=== PATIENT | male | born 1995 | race Caucasian/White ===

== ENCOUNTER 2017-01-08 01:29 | Emergency (ER) | payer SELFPAY ==
--- NOTE | 2017-01-08 02:31 | ER Document Report ---
ED Psych Disorder / Suicide - General Chief Complaint: Suicidal Ideation Stated Complaint: PSYCH EVAL Time Seen by Provider: 01/08/17 02:28 Notes: Patient is a 21-year-old male, past medical history PTSD, anxiety, depression, presents by mobile crisis after he unsuccessfully attempted to hang himself with a 10 foot extension cord. He has not taken his Prozac for the last 4 months because he felt like a "empty shell". He stopped the medications without any medical guidance. He is fighting with his over custody of his children. After the of his child in the past year, he has not gone to counseling with his to discuss this loss. Patient denies difficulty breathing, stridor, LOC, headache, chest pain, numbness, tingling, hallucinations or drug or alcohol use. TRAVEL OUTSIDE OF THE [place] IN LAST 30 DAYS: No - Related Data Allergies/Adverse Reactions: No Known Allergies Allergy (Unverified 01/08/17 01:42) Past Medical History - General Information source: Patient - Social History Smoking Status: Current Every Day Smoker Family History: Reviewed & Not Pertinent Patient has suicidal ideation: Yes Patient has homicidal ideation: No Renal/ Medical History: Denies: Hx Peritoneal Dialysis Review of Systems - Review of Systems Notes: REVIEW OF SYSTEMS: CONSTITUTIONAL: -fevers, -chills EENT: -eye pain, -difficulty swallowing, -nasal congestion CARDIOVASCULAR:-chest pain, -syncope. RESPIRATORY: -cough, -SOB GASTROINTESTINAL: -abdominal pain, - nausea, -vomiting, -diarrhea GENITOURINARY: -dysuria, -hematuria MUSCULOSKELETAL: -back pain, -neck pain SKIN: -rash or skin lesions. HEMATOLOGIC: -easy bruising or bleeding. LYMPHATIC: -swollen, enlarged glands. NEUROLOGICAL: -altered mental status or loss of consciousness, -headache, - neurologic symptoms PSYCHIATRIC: -anxiety, +depression, +suicide attempt ALL OTHER SYSTEMS REVIEWED AND NEGATIVE. Physical Exam - Vital signs Vitals: Temp Pulse Resp BP Pulse Ox 98.1 F 102 H 18 130/97 H 98 01/08/17 01:36 01/08/17 01:36 01/08/17 01:36 01/08/17 01:36 01/08/17 01:36 - Notes Notes: PHYSICAL EXAMINATION: GENERAL: Well-appearing, well-nourished and in no acute distress. HEAD: Atraumatic, normocephalic. EYES: Pupils equal round and reactive to light, extraocular movements intact, sclera anicteric, conjunctiva are normal. ENT: nares patent, oropharynx clear without exudates. Moist mucous membranes. NECK: Normal range of motion, supple without lymphadenopathy LUNGS: Breath sounds clear to auscultation bilaterally and equal. No wheezes rales or rhonchi. HEART: Regular rate and rhythm without murmurs ABDOMEN: Soft, nontender, normoactive bowel sounds. No guarding, no rebound. No masses appreciated. EXTREMITIES: Normal range of motion, no pitting or edema. No cyanosis. NEUROLOGICAL: Cranial nerves grossly intact. Normal speech, normal gait. Normal sensory and motor exams. PSYCH: Cooperative, depressed mood SKIN: Warm, Dry, normal turgor, no rashes or lesions noted. Course - Re-evaluation Re-evalutation: This is the patient's second suicide attempt. No signs of injury from his attempted hanging. Patient is cooperative and said that he will speak to mental health in the morning. - Vital Signs Vital signs: Temp Pulse Resp BP Pulse Ox 98.1 F 102 H 18 130/97 H 98 01/08/17 01:36 01/08/17 01:36 01/08/17 01:36 01/08/17 01:36 01/08/17 01:36 Discharge - Discharge Clinical Impression: Suicide attempt by hanging Qualifiers: Encounter type: initial encounter Qualified Code(s): T71.162A - Asphyxiation due to hanging, intentional self-harm, initial encounter Condition: Serious Disposition: PSYCH HOSP/UNIT
[2017-01-08 03:08] LABS: ABSOLUTE BASOPHILS # (AUTO) 0.1 10^3/uL (0.0-0.2); ABSOLUTE EOSINOPHILS # (AUTO) 0.1 10^3/uL (0.0-0.6); ABSOLUTE LYMPHOCYTES (AUTO) 3.7 10^3/uL (0.5-4.7); ABSOLUTE MONOCYTES (AUTO) 0.8 10^3/uL (0.1-1.4); ABSOLUTE NEUT (AUTO) 7.9 10^3/uL (1.7-8.2); BASOPHILS % (AUTO) 0.6 % (0-2); EOSINOPHILS % (AUTO) 0.7 % (0-6); HEMATOCRIT 46.1 % (37.9-51.0); HEMOGLOBIN 15.9 g/dL (13.5-17.0); HGB HCT DIFFERENCE 1.6; LYMPHOCYTES % (AUTO) 29.7 % (13-45); MEAN CORPUSCULAR HEMOGLOBIN 29.5 pg (27.0-33.4); MEAN CORPUSCULAR HGB CONC 34.4 g/dL (32.0-36.0); MEAN CORPUSCULAR VOLUME 86 fl (80-97); MONOCYTES % (AUTO) 6.6 % (3-13); RED BLOOD COUNT 5.38 10^6/uL (4.35-5.55); RED CELL DISTRIBUTION WIDTH 13.7 % (11.5-14.0); SEGMENTED NEUTROPHILS % (AUTO) 62.4 % (42-78); WHITE BLOOD COUNT 12.6 10^3/uL (4.0-10.5)
[2017-01-08 03:19] LABS: ALANINE AMINOTRANSFERASE 60 U/L (21-72); ALBUMIN 4.6 g/dL (3.5-5.0); ALCOHOL < 10 mg/dL (NONE DETECTED); ALKALINE PHOSPHATASE 104 U/L (38-126); ANION GAP 13 (5-19); ASPARTATE AMINO TRANSFERASE 23 U/L (17-59); BILIRUBIN,DIRECT 0.2 mg/dL (0.0-0.4); BILIRUBIN,TOTAL 0.8 mg/dL (0.2-1.3); BLOOD UREA NITROGEN 18 mg/dL (7-20); CALCIUM 9.7 mg/dL (8.4-10.2); CARBON DIOXIDE 23 mmol/L (22-30); CHLORIDE 104 mmol/L (98-107); CREATININE RESULT 0.99 mg/dL (0.52-1.25); GLUCOSE 91 mg/dL (75-110); POTASSIUM 4.5 mmol/L (3.6-5.0); SODIUM 139.9 mmol/L (137-145)
[2017-01-08 03:34] LABS: APPEARANCE,URINE CLEAR; BILIRUBIN,URINE NEGATIVE (NEGATIVE); GLUCOSE, URINE NEGATIVE (NEGATIVE); KETONES,URINE NEGATIVE (NEGATIVE); LEUKOCYTE ESTERASE,URINE NEGATIVE (NEGATIVE); NITRITE,URINE NEGATIVE (NEGATIVE); PROTEIN,URINE NEGATIVE (NEGATIVE); URINE SPECIFIC GRAVITY 1.028; UROBILINOGEN,URINE NEGATIVE mg/dL (<2.0)
[2017-01-08 03:48] LABS: URINE BARBITURATES SCREEN NEGATIVE; URINE METHADONE SCREEN NEGATIVE; URINE OPIATES LOW NEGATIVE; URINE PHENCYCLIDINE SCREEN NEGATIVE
--- NOTE | 2017-01-08 10:26 | ER Document Report ---
Doctor's Note Notes: 01/08/17 10:25 Patient resting comfortably at this time, no complaints at this time, expresses no needs, chart reviewed including labs and vital signs, which remains stable, patient will remain in the emergency room on involuntary commitment until other arrangements can be made that ensure patient safety
--- NOTE | 2017-01-08 12:59 | EKG REPORT ---
SEVERITY:- NORMAL ECG - SINUS RHYTHM : Confirmed by: Nyla Lobo MD 08-Jan-2017 12:59:04
[2017-01-08] MEDS: OLANZAPINE 2.5 MG TABLET PO SCH (17:40)
[2017-01-08] MEDS: BUSPIRONE HCL 10 MG TABLET PO SCH (22:13)
[2017-01-09] MEDS: BUSPIRONE HCL 10 MG TABLET PO SCH ×2 (08:09→21:05)
[2017-01-09] MEDS: OLANZAPINE 2.5 MG TABLET PO SCH ×2 (09:51→17:39)
--- NOTE | 2017-01-09 09:51 | ER Document Report ---
Doctor's Note Notes: 01/09/17 09:49 Patient sleeping comfortably on stretcher, easily awakened, he is cooperative and interactive, he denies having any suicidal thoughts so far this morning, but is agreeable to referral to [facility] for possible inpatient hospitalization and stabilization, mental health coordinator will make appropriate referrals today in order to expedite this process patient chart was otherwise reviewed, lab and vital signs have been stable, no other complaints or concerns at this time
[2017-01-10] MEDS: BUSPIRONE HCL 10 MG TABLET PO SCH ×2 (09:31→23:01)
[2017-01-10] MEDS: OLANZAPINE 2.5 MG TABLET PO SCH ×2 (09:31→18:13)
--- NOTE | 2017-01-10 10:34 | ER Document Report ---
Doctor's Note Notes: 01/10/17 10:33 Patient is resting comfortably in his bed this morning. He is still [facility].
[2017-01-11] MEDS: OLANZAPINE 2.5 MG TABLET PO SCH (09:20)
[2017-01-11] MEDS: BUSPIRONE HCL 10 MG TABLET PO SCH (09:21)
--- NOTE | 2017-01-11 10:03 | ER Document Report ---
Doctor's Note Notes: 01/11/17 10:03 This is a 21-year-old male brought into the emergency room on 01/08/2017 as an involuntary commitment because of suicidal ideations. Patient had attempted to hang himself with an extension cord but was unsuccessful. The guns at the scene as well. Have a history of suicidal ideations in the past. He is currently in [facility] [place] [facility] his [facility]-. His vital signs and labs have been stable. Patient has been awaiting transfer to the [facility] for ongoing psychiatric evaluation, but has been in the ER several days because of lack of an available bed. Patient states that since being on the medicine in the ER, he is actually improved and feels much better. He denies any suicidal ideations at this time and prefers to go home with outpatient counseling. I have had a long discussion with him. The guns are out of the house and he states that he still has support from his and states he would do better with outpatient counseling. He has had inpatient psychiatric care in the past. He is alert and oriented 3 and appears competent, without delusions or hallucinations and does not appear distressed or depressed. 01/11/17 10:48 01/11/17 20:25 I discussed case with the psychiatry team and the plan will be to discharge patient follow-up.
[2017-01-11 16:37] VITALS: BP 128/80
== END 2017-01-11 17:15 | disposition home or self-care (01) ==
LOC: ER 01:29
DX: T71.162A Asphyxiation due to hanging, intentional self-harm, initial encounter (principal); F32.9 Major depressive disorder, single episode, unspecified; T43.226A Underdosing of selective serotonin reuptake inhibitors, initial encounter; Z91.128 Patient's intentional underdosing of medication regimen for other reason; Z91.14 Patient's other noncompliance with medication regimen; F17.200 Nicotine dependence, unspecified, uncomplicated; R19.8 Other specified symptoms and signs involving the digestive system and abdomen; Z63.4 Disappearance and death of family member; Z65.3 Problems related to other legal circumstances; Z56.9 Unspecified problems related to employment; Z63.0 Problems in relationship with spouse or partner
CPT/HCPCS: 93005; 36415; 80307 ×4; 85025; 80053; 81001; 93010; J3490 ×2; 99285